=== PATIENT | male | born 1940 | race Caucasian/White ===

== ENCOUNTER 2017-01-18 11:31 | Day surgery (SDC) | payer MEDICARE, BC ==
[2017-01-14 21:21] LABS: HEMOGLOBIN 15.4 g/dL (13.6-17.8)
[2017-01-14 21:22] LABS: CALCIUM, SERUM 8.6 MG/DL (8.5-10.4); CHLORIDE, SERUM 104 MMOL/L (96-112); CO2 (CARBON DIOXIDE) 26 MMOL/L (24-34); CREATININE 0.88 MG/DL (0.70-1.30); GFR AFRICAN AMERICAN 97 ML/MIN (>=60); GFR NON AFRICAN AMERICAN 83 ML/MIN (>=60); POTASSIUM, SERUM 3.9 MMOL/L (3.5-5.3); SODIUM, SERUM 144 MMOL/L (135-148)
[2017-01-14 21:23] LABS: BUN (BLOOD UREA NITROGEN) 14 MG/DL (6-23); GLUCOSE, SERUM 332 MG/DL (60-99)
[2017-01-14 21:26] LABS: HEMATOCRIT 47.4 % (40.0-51.0)
--- NOTE | ~2017-01-18 | OP ---
Record Of Operation [facility] [address] [place]. [address] NAME: LAURIE PUGH : 40 STATUS : [facility]#: [id number] AGE: 76 ADM/REG DATE : 01/18/17 MR#: [id number] REPORT SERV DATE: 01/18/17 DICTATED BY: Renetta CLAYTON DATE: 01/18/17 REPORT STATUS : Draft TRANSCRIBED BY: MODL DATE: 01/18/17 DATE OF PROCEDURE: 01/18/2017 PREOPERATIVE DIAGNOSIS: Chronic urinary retention with recurrent urinary tract infections and catheter dysfunction. POSTOPERATIVE DIAGNOSIS: Chronic urinary retention with recurrent urinary tract infections and catheter dysfunction. PROCEDURE: Cystoscopy, bilateral retrograde pyelography, bladder irrigation, and examination under anesthesia. SURGEON: Renetta Clayton M.D. ANESTHESIA: General with LMA. COMPLICATIONS: None. DRAINS: 20-Puerto Rican 2-way Rashid catheter with 20 mL of sterile water in the balloon. BRIEF HISTORY: Mr. Pugh is a 76-year-old white male, who has been in urinary retention since last summer. He has had a host of problems with catheter dysfunction sediment, needed frequent changes with infections, treated with a variety of antibiotics. He also has suprapubic pain and bladder spasms with intermittent penile pain. Myrbetriq has helped him some and he has also been on a cranberry supplement. Noncontrast CT showed no significant abnormalities and we decided to proceed with examination under anesthesia with bladder irrigation if he had residual sediment. The risks of bleeding, infection, anesthesia, inability to help his current problem, etc. were discussed. There were no unanswered questions. DESCRIPTION OF PROCEDURE: Under excellent general anesthesia, the patient was prepped and draped in a standard lithotomy position. Examination revealed a normal-appearing uncircumcised penis. Digital exam revealed a 1 to 2+ symmetric smooth prostate gland without induration or nodularity. Cystoscopy was performed with the 70 and 30 degree lenses and revealed a normal anterior urethra. The posterior urethra showed some mild lateral lobe BPH with median lobe that encroached on the trigone but not a lot of obstruction was noted. Inspection of the bladder revealed only a minimal amount of sediment with erythema throughout, consistent with Rashid irritation. I irrigated the bladder of the minimal amount of sediment that was present with the Ellik evacuator and an 8-Puerto Rican cone-tipped catheter was then used to perform bilateral retrograde pyelography which showed a normal caliber ureter on the right without filling defect or obstruction and normal drainage. Similarly left ureter showed no evidence of filling defect or obstruction with good drainage. I did not feel like there was anything left to do at this point, so I placed a 20-Puerto Rican Rashid catheter which is a little bit larger than he has been using and placed 20 mL of sterile water in the balloon. My thought was perhaps some of his problems are when the catheter gets pulled down the prostatic fossa and so I thought that the 20 mL volume might help that. Record Of Operation [facility] [address] [place]. [address] NAME: LAURIE PUGH : 40 STATUS : [facility]#: [id number] AGE: 76 ADM/REG DATE : 01/18/17 MR#: [id number] REPORT SERV DATE: 01/18/17 DICTATED BY: Renetta CLAYTON DATE: 01/18/17 REPORT STATUS : Draft TRANSCRIBED BY: YASEMIN DATE: 01/18/17 I plan to discharge Mr. Pugh as an outpatient with the following instructions. DISCHARGE INSTRUCTIONS: 1. Home today. 2. Finish preoperative antibiotics as previously prescribed. 3. The family will try to find the Uroquid-Acid No. 2, that I prescribed. At his last office visit, they have been having trouble doing that. I will look online to see if I can find a local pharmacy that carries it. 4. Follow up in my office in two-to-four weeks. We will consider further intervention, antibiotic suppression, TheraCran, etc., as appropriate. PO/YASEMIN Renetta Clayton M.D. / [id number] CC: Loan Velasquez M.D.
[~2017-01-18 11:31] MED LIST: ACTOS30 PO; AMOXIL500 MG PO; FERROUS SULF325 M1 PO; FLOMAX4 PO; GLUCOV5 PO; HYDROCHLOROT25 MG PO; INVOKANA300 MG PO; L20 PO; LEXAPRO20 PO; LIPITOR20 PO; PRIN20 PO; PROSCAR5 PO; TOUJEO SC; XARELTO20 MG PO
[2017-02-09] MEDS ORDERED: T PO (12:23)
== END 2017-01-18 19:16 | disposition home or self-care (01) ==
LOC: SDC 11:31
PROC: BT14ZZZ Fluoroscopy of Kidneys, Ureters and Bladder (ICD-10-PCS; principal; 2017-01-18 12:45)
DX: N39.0 Urinary tract infection, site not specified (principal); I10 Essential (primary) hypertension; I48.91 Unspecified atrial fibrillation; F03.90 Unspecified dementia, unspecified severity, without behavioral disturbance, psychotic disturbance, mood disturbance, and anxiety; Z86.73 Personal history of transient ischemic attack (TIA), and cerebral infarction without residual deficits; Z79.4 Long term (current) use of insulin; Z79.899 Other long term (current) drug therapy
CPT/HCPCS: 36415; 74420; 80048; 82962; 85014; 85018; 93005; J0690; J1580; J2405; J3010; Q9966; Q9967

== ENCOUNTER 2017-02-14 08:20 | Day surgery (SDC) | payer MEDICARE, BC ==
[2017-02-11 18:07] LABS: HEMATOCRIT 44.6 % (40.0-51.0); HEMOGLOBIN 14.6 g/dL (13.6-17.8)
[2017-02-11 18:10] LABS: BUN (BLOOD UREA NITROGEN) 16 MG/DL (6-23); CALCIUM, SERUM 8.7 MG/DL (8.5-10.4); CHLORIDE, SERUM 104 MMOL/L (96-112); CO2 (CARBON DIOXIDE) 28 MMOL/L (24-34); CREATININE 1.12 MG/DL (0.70-1.30); GFR AFRICAN AMERICAN 74 ML/MIN (>=60); GFR NON AFRICAN AMERICAN 63 ML/MIN (>=60); GLUCOSE, SERUM 246 MG/DL (60-99); POTASSIUM, SERUM 4.2 MMOL/L (3.5-5.3); SODIUM, SERUM 140 MMOL/L (135-148)
--- NOTE | ~2017-02-14 | OP ---
Record Of Operation [facility] [address] [place] [place]. [address] NAME: LAURIE PUGH : 40 STATUS : [facility]#: [id number] AGE: 76 ADM/REG DATE : 02/14/17 MR#: [id number] REPORT SERV DATE: 02/14/17 DICTATED BY: Renetta CLAYTON DATE: 02/14/17 REPORT STATUS : Draft TRANSCRIBED BY: MODL DATE: 02/14/17 DATE OF PROCEDURE: 02/14/2017 PREOPERATIVE DIAGNOSIS: Chronic urinary retention with chronic urethral discomfort. POSTOPERATIVE DIAGNOSES: 1. Chronic urinary retention. 2. Bladder stone (small). PROCEDURE: Cystoscopy, cystolitholapaxy (small stone), bladder irrigation, placement of suprapubic tube, examination under anesthesia. SURGEON: Renetta Clayton M.D. ANESTHESIA: General. COMPLICATIONS: None. DRAINS: 1. 16-Polish suprapubic tube. 2. 18-Polish urethral Rashid catheter. BRIEF HISTORY: Mr. Pugh is a 76-year-old man, who has been in urinary retention for a little bit less than a year. He has had been catheter dependent and has failed multiple voiding trials. He has also had multiple problems with catheter issues including the need for change, buildup of obstructing mucous on the catheters, and pain in the penis which appears to be chronic. About a month ago, I looked in there, but I did not see anything in his bladder. We tried to put in a tube up to 20-Polish, but still he needs catheter changes several times a month, due to obstruction and pain. He also is complaining of pain and irritation in the penis and my only short-term solution is to place a suprapubic tube. I have also prescribed Uroquid-Acid, but they have been unable to find this product locally. We discussed risks of bleeding, infection, anesthesia, injury to adjacent organs, in fact the suprapubic tube may not help his problem whatsoever. There were no unanswered questions. DESCRIPTION OF PROCEDURE: Under excellent general anesthesia, the patient was prepped and draped in a standard lithotomy position. The urethral Rashid catheter had been removed. Cystoscopy was performed with a 30-degree lens, revealed a splayed glans penis. The urethra was normal. There was some obstruction from the prostate circumferentially. Inspection of the bladder revealed normal catheter irritation, but there was also a collection of stone in the base of the bladder. These were small fragments, it might have been on the catheter that we removed or could also have been on the previous catheter. At any rate, they were broken into finer pieces and removed with the ioSafe evacuator. I would say this stone was less than half a centimeter in total size. The remainder of the bladder appeared normal. I had marked the spot two fingerbreadths above the pubic bone in the midline. I used a spinal needle to jordyn a path into the dome of the bladder adjacent to the bubble. I then use the Record Of [address] [place]. [address] NAME: LAURIE PUGH : 40 STATUS : [facility] PAT#: [id number] AGE: 76 ADM/REG DATE : 02/14/17 MR#: [id number] REPORT SERV DATE: 02/14/17 DICTATED BY: Renetta CLAYTON DATE: 02/14/17 REPORT STATUS : Draft TRANSCRIBED BY: YASEMIN DATE: 02/14/17 [place] suprapubic tube guide and made a 0.5 cm incision in the skin. The guide was then inserted percutaneously into the dome of the bladder under direct visualization and advanced. The needle was removed. A 16-Polish Rashid catheter was placed through the sheath and the peel-away sheath was then removed. I placed a 20 mL of water in the balloon and then affixed to the skin with a 3-0 silk suture. A sterile dressing was applied after the case. I then reinserted an 18-Polish Rashid catheter per urethra as a safety valve and plugged it. Digital exam revealed a 2 to 3+ symmetric gland and I inserted a B and O suppository. I planned to discharge Mr. Pugh as an outpatient with the following instructions. DISCHARGE INSTRUCTIONS: 1. Home today. 2. It is okay for home health to remove his Rashid catheter in one to two days, or he can come to my office for removal, as well as a suprapubic tube is functioning well. 3. Follow up in my office one month for suprapubic tube exchange. We will try to advance him to a larger catheter as progressively the next being an 18-Polish and then up to a 20-Polish if possible. Further plans will depend upon his clinical course. I encouraged the family to continue try to find the Uroquid. I feel that probably stone formation is his biggest problem and we will need to try to find some medical therapy to reduce his risk of calcification within the bladder. BRANDOND/MODL Renetta Clayton M.D. / [id number] CC: Loan Velasquez M.D.
[~2017-02-14 08:20] MED LIST changes: +T PO
[2017-02-18 21:00] LABS: STONE COMPOSITION TWO DNR (())
== END 2017-02-14 14:57 | disposition home or self-care (01) ==
LOC: SDC 08:20
PROC: 0T9B30Z Drainage of Bladder with Drainage Device, Percutaneous Approach (ICD-10-PCS; 2017-02-14)
PROC: 0TCB8ZZ Extirpation of Matter from Bladder, Via Natural or Artificial Opening Endoscopic (ICD-10-PCS; principal; 2017-02-14 10:00)
DX: N21.0 Calculus in bladder (principal); N30.20 Other chronic cystitis without hematuria; N40.1 Benign prostatic hyperplasia with lower urinary tract symptoms; R33.8 Other retention of urine; I48.91 Unspecified atrial fibrillation; I11.0 Hypertensive heart disease with heart failure; I50.9 Heart failure, unspecified; E11.9 Type 2 diabetes mellitus without complications; E78.00 Pure hypercholesterolemia, unspecified; M19.90 Unspecified osteoarthritis, unspecified site; K21.9 Gastro-esophageal reflux disease without esophagitis; D64.9 Anemia, unspecified; F03.90 Unspecified dementia, unspecified severity, without behavioral disturbance, psychotic disturbance, mood disturbance, and anxiety; F41.9 Anxiety disorder, unspecified; F32.9 Major depressive disorder, single episode, unspecified; Z86.73 Personal history of transient ischemic attack (TIA), and cerebral infarction without residual deficits; Z79.4 Long term (current) use of insulin; Z79.01 Long term (current) use of anticoagulants; Z79.899 Other long term (current) drug therapy; Z87.891 Personal history of nicotine dependence; Z98.890 Other specified postprocedural states; Z87.442 Personal history of urinary calculi; Z87.440 Personal history of urinary (tract) infections; Z98.49 Cataract extraction status, unspecified eye; Z96.641 Presence of right artificial hip joint; Z87.81 Personal history of (healed) traumatic fracture
CPT/HCPCS: 36415; 80048; 82365; 82962; 85014; 85018; A9270-GY; J0690; J2710; J3010

== ENCOUNTER 2017-03-28 22:58 | Emergency (ER) | payer MEDICARE, BC ==
[2017-03-28 23:39] LABS: BASOPHILS 0.7 %; BASOPHILS ABSOLUTE 0.05 10/3/uL (0.0-0.16); EOSINOPHILS 2.4 %; EOSINOPHILS ABSOLUTE 0.18 10/3/uL (0.0-0.53); HEMATOCRIT 44.3 % (40.0-51.0); HEMOGLOBIN 14.8 g/dL (13.6-17.8); IMMATURE GRANULOCYTES 0.4 %; IMMATURE GRANULOCYTES ABSOLUTE 0.03 10/3/uL (0.0-0.11); LYMPHOCYTES 33.6 %; LYMPHOCYTES ABSOLUTE 2.54 10/3/uL (0.67-4.30); MANUAL DIFF NO %; MEAN CORPUS HGB CONC 33.4 g/dL (32.0-36.0); MEAN CORPUSCULAR HEMOGLOB 30.8 pg (26.0-34.0); MEAN CORPUSCULAR VOLUME 92.1 fL (80-100); MEAN PLATELET VOLUME 9.5 fL (9.2-13.0); MONOCYTES ABSOLUTE 0.53 10/3/uL (0.21-1.20); NEUTROPHILS 55.9 %; NEUTROPHILS ABSOLUTE 4.23 10/3/uL (2.02-8.40); PLATELET COUNT 189 10/3/uL (150-400); RBC DISTRIBUTION WIDTH 14.8 % (12.0-16.0); RED CELL COUNT 4.81 10/6/uL (4.7-6.1); WHITE BLOOD CELLS 7.6 10/3/uL (4.5-10.5)
[2017-03-28 23:47] LABS: INTERNATIONAL NORMAL RATI 2.4 UNITS (-); PARTIAL THROMBO TIME 42.2 SEC (22.5-37.2)
[2017-03-28 23:54] LABS: A/G RATIO 0.7 (0.7-1.9); ALBUMIN 2.7 G/DL (3.5-5.0); BUN (BLOOD UREA NITROGEN) 16 MG/DL (6-23); CALCIUM, SERUM 8.6 MG/DL (8.5-10.4); CHLORIDE, SERUM 105 MMOL/L (96-112); CO2 (CARBON DIOXIDE) 30 MMOL/L (24-34); GFR AFRICAN AMERICAN 95 ML/MIN (>=60); GFR NON AFRICAN AMERICAN 82 ML/MIN (>=60); GLOBULIN 3.8 G/DL (2.5-4.1); SGPT(ALT) 13 U/L (5-65); SODIUM, SERUM 141 MMOL/L (135-148); TOTAL PROTEIN 6.5 G/DL (6.0-8.5)
[2017-03-28 23:57] LABS: ALKALINE PHOSPHATASE 88 U/L (45-117); GLUCOSE, SERUM 194 MG/DL (60-99); POTASSIUM, SERUM 4.8 MMOL/L (3.5-5.3); SGOT(AST) 29 U/L (5-40); TOTAL BILIRUBIN 0.6 MG/DL (0-1.2)
[2017-03-29 00:04] LABS: LACTATE 1.8 MMOL/L (0.3-2.4)
[2017-03-29 00:15] LABS: ASCORBIC ACID (UR NOT ORDER) 20 (NEG); BILIRUBIN, URINE NEGATIVE (NEG); ER URINALYSIS TAT 0 Hrs 11 Mins; KETONE, URINE NEGATIVE (NEG); LEUKOCYTE ESTERASE(NOT OR MOD (NEG); NITRITE (URINE) NEG (NEG); WBC (NOT ORDERED) (RFLEX) 42 (0-5)
[2017-03-29 00:28] LABS: PROCALCITONIN <0.05 ng/mL (<0.5)
== END 2017-03-29 01:54 | disposition home or self-care (01) ==
LOC: ER 22:58
PROVIDERS: Nurse Practitioner Acute Care
DX: N30.91 Cystitis, unspecified with hematuria (principal); I11.0 Hypertensive heart disease with heart failure; I50.9 Heart failure, unspecified; I48.91 Unspecified atrial fibrillation; E11.9 Type 2 diabetes mellitus without complications; F32.9 Major depressive disorder, single episode, unspecified; Z79.899 Other long term (current) drug therapy; Z79.4 Long term (current) use of insulin
CPT/HCPCS: 71010; 74176; 80053; 81001; 83605; 84145; 85025; 85610; 85730; 87040; 87077; 87086; 87186; 99284; A9270-GY